=== PATIENT | male | born 1985 | race Caucasian/White ===

== ENCOUNTER 2020-05-11 14:16 | Emergency (ER) | payer OTHER ==
[~2020-05-11] VITALS: Ht 172.7 cm; Wt 73.0 kg
[2020-05-11 15:54] VITALS: BP 120/78
== END 2020-05-11 15:54 | disposition home or self-care (01) ==
LOC: ER 14:16
DX: R22.1 Localized swelling, mass and lump, neck (principal)
CPT/HCPCS: 99281